=== PATIENT | male | born 1945 | race Caucasian/White ===

== ENCOUNTER → 2024-10-27 13:06 | Outpatient (REF) | payer MEDICARE, SELFPAY ==
[2024-10-27 14:00] LABS: % Basophils 0.4 % (0-2); % Eosinophils 1.8 % (0-6); % Immature Granulocytes 0.4 % (0-0.5); % Lymphocytes 15.2 % (20.5-51.1); % Monocytes 8.2 % (1.7-9.3); Absolute Eosinophils 0.1 10^3/uL (0-0.7); Absolute Monocytes 0.6 10^3/uL (0.1-0.6); Hematocrit 37.9 % (39.0-52.0); Hemoglobin 12.7 g/dL (13.0-18.0); Mean Corp Hgb Conc. 33.5 g/dL (33.0-37.0); Mean Corpuscular Hgb 29.3 pg (27.0-31.0); Mean Corpuscular Volume 87.3 fL (80.0-94.0); Mean Platelet Volume 9.8 fL (7.4-10.4); Nucleated Red Blood Cells % 0 % (-); Platelet Count 159 10^3/uL (130-400); Red Blood Cell Count 4.34 10^6/uL (4.70-6.10); Red Cell Dist. Width 13.2 % (11.5-14.5); White Blood Cell Count 6.7 10^3/uL (4.8-10.8)
[2024-10-27 14:42] LABS: ALT (SGPT) 15 U/L (0-50); AST (SGOT) 16 U/L (17-59); Albumin 4.2 g/dl (3.5-5.0); Alkaline Phosphatase 83 U/L (38-126); Blood Urea Nitrogen 42 mg/dl (9-20); Calcium 9.7 mg/dl (8.4-10.2); Carbon Dioxide 27 mmol/L (22-30); Chloride 108 mmol/L (98-107); Glucose 144 mg/dl (70-99); HDL Cholesterol 48 mg/dl; LDL Cholesterol, Calculated 73 mg/dl; Potassium 5.1 mmol/L (3.5-5.1); Sodium 142 mmol/L (135-145); Total Bilirubin 0.9 mg/dl (0.2-1.3); Total Cholesterol 142 mg/dl (50-199); Total Protein 7.1 g/dl (6.3-8.2); Triglyceride 107 mg/dl (10-149); Very Low Density Lipoprotein 21 mg/dl (0-30); eGFR 33.53
== END ==
LOC: RCS 13:06
PROVIDERS: ATTENDING PHYSICIAN Family Medicine
DX: R01.1 Cardiac murmur, unspecified (principal); I10 Essential (primary) hypertension
CPT/HCPCS: 36415; 80053; 80061; 85025; 93306

== ENCOUNTER → 2024-11-05 14:27 | Outpatient (REF) | payer MEDICARE, SELFPAY ==
[2024-11-05 16:05] LABS: Blood Urea Nitrogen 36 mg/dl (9-20); Calcium 9.7 mg/dl (8.4-10.2); Carbon Dioxide 27 mmol/L (22-30); Chloride 107 mmol/L (98-107); Potassium 4.8 mmol/L (3.5-5.1); Sodium 142 mmol/L (135-145); eGFR 33.53
[2024-11-05 16:15] LABS: Glucose 130 mg/dl (70-99)
== END ==
LOC: REG 14:27
PROVIDERS: ATTENDING PHYSICIAN Family Medicine
DX: I10 Essential (primary) hypertension (principal); I48.0 Paroxysmal atrial fibrillation
CPT/HCPCS: 36415; 80048